=== PATIENT | male | born 1975 | race Hispanic/Latino ===

== ENCOUNTER 2019-11-24 16:31 | Emergency (ER) | payer BC ==
[2019-11-24] MEDS ORDERED: Diazepam 5 MG TAB ONE (17:31)
[2019-11-24] MEDS ORDERED: Ondansetron ODT 4 MG TAB ONE (18:11)
[2019-11-24] MEDS ORDERED: Morphine 4 MG/ML VIAL ONE (18:11)
== END 2019-11-24 18:52 | disposition home or self-care (01) ==
LOC: ERS 16:31
DX: M54.5 Low back pain (principal); I10 Essential (primary) hypertension; Z79.899 Other long term (current) drug therapy
CPT/HCPCS: 96372; 99283; J2270; Q0162

== ENCOUNTER 2020-04-24 04:46 | Emergency (ER) | payer OTHER, BC ==
[2020-04-24] MEDS ORDERED: Ondansetron PF 4 MG/2 ML Vial ONE (05:18)
[2020-04-24] MEDS ORDERED: Morphine 4 MG/ML VIAL ONE (05:18)
[2020-04-24] MEDS ORDERED: HYDROcodone/Acetaminophen 5/325 mg Tablet ONE (05:41)
--- NOTE | 2020-04-24 08:45 | RAD ---
RIGHT ANKLE 3 VIEWS: HISTORY: Right ankle pain. FINDINGS/IMPRESSION: There are mildly displaced bimalleolar fractures involving the lateral and the medial malleoli. POS: [facility]
== END 2020-04-24 07:30 | disposition home or self-care (01) ==
LOC: ERS 04:46 → EDSTATUS 04:51 → ERS 07:30
DX: S82.851A Displaced trimalleolar fracture of right lower leg, initial encounter for closed fracture (principal); I10 Essential (primary) hypertension; Z79.899 Other long term (current) drug therapy; Z79.1 Long term (current) use of non-steroidal anti-inflammatories (NSAID); X50.1XXA Overexertion from prolonged static or awkward postures, initial encounter
CPT/HCPCS: 29515; 96374; 96375; J2270; J2405

== ENCOUNTER 2020-04-30 02:53 | Emergency (ER) | payer BC, OTHER ==
[2020-04-30] MEDS ORDERED: Ketorolac Tromethamine 30 MG/ML VIAL ONE (03:15)
--- NOTE | 2020-04-30 10:57 | RAD ---
RIGHT TIBIA AND FIBULA TWO VIEWS: HISTORY: Previous ankle fracture. The patient's pain meds fell in the toilet. The patient complains of right l eg pain. COMPARISON: None. FINDINGS: Two views of the right tibia and fibula show a fracture of the medial malleolus with slight malalignm ent of the ankle mortise. There is also a fracture of the distal fibula, which is difficult to visual ize on this tibia/fibula series. There may be a small fracture of the posterior-most aspect of the po sterior malleolus. Diffuse surrounding soft tissue swelling is seen. IMPRESSION: Trimalleolar fracture of the right ankle. POS: [facility]
== END 2020-04-30 03:55 | disposition home or self-care (01) ==
LOC: ERS 02:53
DX: M79.605 Pain in left leg (principal); I10 Essential (primary) hypertension; Z79.899 Other long term (current) drug therapy
CPT/HCPCS: 96372; J1885

== ENCOUNTER 2020-05-15 10:38 | Outpatient (CLI) | payer OTHER ==
[2020-05-15 16:16] LABS: Hemoglobin 15.1 g/dL (14.0-18.0); Mean Corpuscular HGB CONC 32.7 g/dL (32.0-36.0); Mean Corpuscular Hemoglobin 29.1 pg (27.0-31.0); Mean Corpuscular Volume 89.1 fL (78.0-98.0); Mean Platelet Volume 7.8 fL (7.4-10.4); Platelet Count 391 thou/uL (130-400); RBC Distribution Width 12.3 % (11.5-14.5); Red Blood Cell (RBC) Count 5.19 mill/uL (4.70-6.10); White Blood Cell (WBC) Count 9.5 thou/uL (4.8-10.8)
[2020-05-15 16:23] LABS: Anion Gap 14 mmol/L (10-20); BUN (Urea Nitrogen) 19 mg/dL (8.9-20.6); Calc. Creatinine Clearance 0 mL/min (70-130); Calcium 9.6 mg/dL (7.8-10.44); Carbon Dioxide 27 mmol/L (22-29); Chloride 103 mmol/L (98-107); Estimated GFR-MDRD Greater than 90; Glucose 95 mg/dL (70-105); Potassium 4.7 mmol/L (3.5-5.1); Sodium 139 mmol/L (136-145)
--- NOTE | 2020-05-15 17:55 | EKG ---
Test Reason : Blood Pressure : / mmHG Vent. Rate : 095 BPM Atrial Rate : 095 BPM P-R Int : 158 ms QRS Dur : 088 ms QT Int : 404 ms P-R-T Axes : 068 -11 113 degrees QTc Int : 507 ms Normal sinus rhythm Possible Inferior infarct , age undetermined Prolonged QT Abnormal ECG No previous ECGs available Confirmed by DR. David PEÑALOZA MD ([id number]) on 05/15/2020 5:55:00 PM Referred By: CARIDAD Confirmed By:DR. David PEÑALOZA MD
[2020-05-16 13:12] LABS: SARS-CoV-2 MS2 Positive; SARS-CoV-2 N Gene Negative; SARS-CoV-2 S Gene Negative; SARS-CoV-2 orf1ab Negative
== END 2020-05-15 10:39 | disposition home or self-care (01) ==
LOC: LABBT 10:38
PROVIDERS: ATTEND Orthopaedic Surgery
DX: Z01.818 Encounter for other preprocedural examination (principal); Z11.59 Encounter for screening for other viral diseases; S82.851A Displaced trimalleolar fracture of right lower leg, initial encounter for closed fracture
CPT/HCPCS: 80048; 85027; 87635; 93005; 93010; U0003

== ENCOUNTER 2020-05-18 05:58 | Day surgery (SDC) | payer OTHER ==
[2020-05-15 12:23] VITALS: BMI 41.8
[2020-05-18] MEDS ORDERED: Fentanyl 100 MCG/2 ML VIAL ONE ×5 (06:41→10:03)
[2020-05-18] MEDS ORDERED: Midazolam HCl 2 mg/2 ml Vial ONE ×2 (06:41→06:55)
[2020-05-18] MEDS ORDERED: Neomycin-Polymyxin 1 ML AMP ONE (06:46)
[2020-05-18] MEDS ORDERED: Lidocaine 1% (PF) 30 ML VIAL ONE (06:55)
[2020-05-18] MEDS ORDERED: HYDROcodone/Acetaminophen 10/325 mg Tablet PO PRN ×2 (07:43)
[2020-05-18] MEDS ORDERED: Ondansetron PF 4 MG/2 ML Vial IVP PRN (07:43)
[2020-05-18] MEDS ORDERED: Zolpidem Tartrate 5 MG TAB PO PRN (07:43)
[2020-05-18] MEDS ORDERED: traMADol HCl 50 MG TAB PO PRN ×2 (07:43)
[2020-05-18] MEDS ORDERED: Ketorolac Tromethamine 30 MG/ML VIAL IVP PRN (07:43)
[2020-05-18] MEDS ORDERED: Ropivacaine 0.2% 550 ML 550 ML NERVE BLCK SCH (07:43)
[2020-05-18] MEDS ORDERED: Promethazine HCl 25 MG/ML VIAL IM PRN (07:43)
[2020-05-18] MEDS ORDERED: Acetaminophen 325 MG TAB PO PRN (07:43)
[2020-05-18] MEDS ORDERED: Fentanyl 100 MCG/2 ML VIAL SLOW IVP PRN (07:43)
[2020-05-18] MEDS ORDERED: HYDROmorphone 2 MG/ML VIAL ONE (08:13)
[2020-05-18] MEDS ORDERED: Bupivacaine HCl 0.5%/Epinephrine 1:200,000/PF 30 ml Vial ONE ×2 (09:42→11:47)
--- NOTE | 2020-05-18 09:44 | RAD ---
RIGHT ANKLE 2 VIEWS: Date: 05/18/2020 HISTORY: Open reduction and internal fixation right ankle. FINDINGS/IMPRESSION: Interval reduction and internal fixation of the fractures of the medial and lateral malleoli are seen since the exam of 04/24/2020. Two screws have been placed through the medial malleolus and patent sc rews through the distal fibula. POS: [facility]
--- NOTE | 2020-05-18 09:50 | OP ---
DATE OF PROCEDURE: 05/18/2020 PREOPERATIVE DIAGNOSIS: Displaced bimalleolar fracture of the right ankle. POSTOPERATIVE DIAGNOSIS: Displaced bimalleolar fracture of the right ankle. PROCEDURE PERFORMED: Open reduction and internal fixation of bimalleolar fracture of the right ankle. ANESTHESIA: General. DESCRIPTION OF PROCEDURE: The patient was given preoperative IV antibiotics, taken to the operating room, placed in a supine position. Satisfactory general anesthesia was performed. The right lower extremity was sterilely prepped and draped in usual fashion. After exsanguination, tourniquet of the proximal right leg was raised to 250 mmHg. A longitudinal incision was made over the medial malleolus, and the tissue that had formed between the fractures was debrided with rongeur and curette. A lateral incision was then made on the ankle approximately 5 inches in length. Blunt and sharp dissection was made to the lateral aspect of the fibula, which was then periosteally elevated. The distal fibular shaft fracture was manipulated, reduced, initially held with a 3.5 cortical screw in a lag fashion and then a distal [employer] fibular plate was utilized using two 3.5 cortical screws in the shaft, six 2.7 locking screws distally and an additional 2.7 locking screw in the proximal aspect of the plate in the shaft. This was all performed under fluoroscopic visualization, which showed anatomic alignment of the lateral malleolus. The ankle was reduced as well as the medial malleolus, and this was internally fixed using two 4.0 cannulated screws. Again, after the internal fixation, C-arm was used to x-ray the ankle, which showed the ankle to be in good alignment, AP mortise view and lateral views. The wounds were then copiously irrigated with antibiotic solution. They were closed using 2-0 Vicryl for the deeper tissue, and the skin was closed with 3-0 Rapide. Sterile dressing was applied along with a boot. Tourniquet was released. The patient was awakened, extubated, and transferred to recovery room in stable condition. ESTIMATED BLOOD LOSS: Minimal. COMPLICATIONS: None. DISCHARGE MEDICATION: [place] 10 one every 6 hours as needed for pain, #40. FOLLOWUP: Follow up in my office in 2 weeks. The patient was told multiple times before surgery and again told to his he needs to be nonweightbearing on the right foot. Job ID: [id number]
[2020-05-18] MEDS ORDERED: Morphine 4 MG/ML VIAL ONE ×2 (10:31→10:46)
[2020-05-18] MEDS ORDERED: HYDROcodone/Acetaminophen 5/325 mg Tablet ONE (10:47)
[2020-05-18] MEDS ORDERED: Ondansetron PF 4 MG/2 ML Vial ONE (11:47)
[2020-05-18] MEDS ORDERED: Ropivacaine 0.5% HCl/PF (150 MG/30 ML VIAL) ONE (11:47)
[2020-05-18] MEDS ORDERED: PROPOFOL 200 MG/20 ML VIAL ONE (11:47)
[2020-05-18] MEDS ORDERED: Dexamethasone 20 MG/5 ML VIAL ONE (11:47)
[2020-05-18] MEDS ORDERED: EPHEDRINE 25 MG/5 ML SYRINGE ONE (11:47)
[2020-05-18] MEDS ORDERED: Ketorolac Tromethamine 30 MG/ML VIAL ONE (11:47)
[2020-05-18] MEDS ORDERED: Lidocaine 1% PF 5 ML VIAL ONE (11:47)
== END 2020-05-18 12:30 | disposition home or self-care (01) ==
LOC: SDC 05:58
PROVIDERS: ATTEND Orthopaedic Surgery
PROC: 0QSG04Z Reposition Right Tibia with Internal Fixation Device, Open Approach (ICD-10-PCS; principal; 2020-05-18)
PROC: 0QSJ04Z Reposition Right Fibula with Internal Fixation Device, Open Approach (ICD-10-PCS; principal; 2020-05-18)
DX: S82.841A Displaced bimalleolar fracture of right lower leg, initial encounter for closed fracture (principal); F17.210 Nicotine dependence, cigarettes, uncomplicated; Z88.5 Allergy status to narcotic agent; Z88.6 Allergy status to analgesic agent
CPT/HCPCS: 76000; A4306; C1713; C1769; J0670; J0690; J1100; J1170; J1885; J2001; J2250; J2270; J2405; J2704; J2795; J3010

== ENCOUNTER 2020-07-10 03:49 | Emergency (ER) | payer BC ==
[2020-07-10] MEDS ORDERED: Morphine 10 MG/ML VIAL ONE (04:18)
[2020-07-10] MEDS ORDERED: Ketorolac Tromethamine 30 MG/ML VIAL ONE (04:18)
[2020-07-10] MEDS ORDERED: Fentanyl 100 MCG/2 ML VIAL ONE (04:55)
--- NOTE | 2020-07-10 09:19 | RAD ---
RIGHT ANKLE 3 VIEWS: HISTORY: Pain. COMPARISON: 05/18/2020. FINDINGS: Metal plate and screws stabilize the distal fibula and lateral malleolus and 2 internal fixation scre ws stabilize the medial malleolus. There is some heterogeneous bone demineralization of the ankle an d visualized hindfoot. No evidence for acute fracture or dislocation. IMPRESSION: Bimalleolar postoperative changes. Heterogeneous patchy bony demineralization, particularly in the p eriarticular regions of the right ankle and hindfoot. No acute fracture or dislocation. POS: [facility]
== END 2020-07-10 05:55 | disposition home or self-care (01) ==
LOC: ERS 03:49
DX: M25.571 Pain in right ankle and joints of right foot (principal); I10 Essential (primary) hypertension; Z79.899 Other long term (current) drug therapy; Z79.1 Long term (current) use of non-steroidal anti-inflammatories (NSAID)
CPT/HCPCS: 96372; 96374; J1885; J2270; J3010

== ENCOUNTER 2020-08-01 20:56 | Emergency (ER) | payer BC, OTHER ==
[2020-08-01] MEDS ORDERED: HYDROcodone/Acetaminophen 10/325 mg Tablet ONE (22:05)
--- NOTE | 2020-08-01 22:10 | RAD ---
THREE VIEWS RIGHT FOOT: 08/01/20 PROVIDED CLINICAL HISTORY: Pain. FINDINGS: Postoperative changes involving the ankle are demonstrated, without evidence for hardware loosening o r migration. There is no evidence for an acute fracture or other acute osseous abnormality. If there is persistent clinical concern, conservative management and follow-up imaging are advised. IMPRESSION: As above. POS: [facility]
[2020-08-01] MEDS ORDERED: Morphine 4 MG/ML VIAL ONE (22:29)
== END 2020-08-01 22:56 | disposition home or self-care (01) ==
LOC: ERS 20:56
DX: M25.571 Pain in right ankle and joints of right foot (principal); I10 Essential (primary) hypertension; F17.220 Nicotine dependence, chewing tobacco, uncomplicated; Z79.899 Other long term (current) drug therapy
CPT/HCPCS: 96372; J2270

== ENCOUNTER 2020-09-29 23:46 | Emergency (ER) | payer OTHER, SELFPAY ==
[2020-09-30] MEDS ORDERED: Ketorolac Tromethamine 30 MG/ML VIAL ONE (00:27)
== END 2020-09-30 00:33 | disposition home or self-care (01) ==
LOC: ERS 23:46
DX: M25.571 Pain in right ankle and joints of right foot (principal)
CPT/HCPCS: 96372; 99282; J1885